=== PATIENT | male | born 1970 | race Caucasian/White ===

== ENCOUNTER 2019-01-19 08:26 | Inpatient (IN) | payer MEDICAID ==
[~2019-01-19] VITALS: Ht 162.6 cm; Wt 68.0 kg
[~2019-01-19 08:26] MED LIST: CLOP75TA33 PO; INSU3INS6 SQ; METO25TA6 PO
[2019-01-19 10:11] LABS: BASOPHILS % 0.6 % (0.0-2.0); EOSINOPHILS % 0.3 % (0.0-5.0); HEMOGLOBIN. 13.6 g/dL (14.0-18.0); LYMPHOCYTES % 19.9 % (20.0-50.0); MEAN CORPUSCULAR HEMOGLOBIN 27.5 pg (28.0-32.0); MEAN PLATELET VOLUME 10.4 fl (7.4-10.4); MONOCYTES % 3.8 % (2.0-8.0); NEUTROPHILS % 75.4 % (40.0-76.0); PLATELET 290 x1000/uL (130-400); RED BLOOD CELL COUNT 4.95 mill/uL (4.7-6.1); RED CELL DISTRIBUTION WIDTH 14.4 % (11.6-14.6)
[2019-01-19 10:16] LABS: INR 1.1; PROTHROMBIN TIME 11.4 sec (9.1-11.1)
[2019-01-19 10:17] LABS: CHLORIDE 109 mEq/L (98-107)
[2019-01-19] MEDS ORDERED: ONDANSETRON HCL 4MG/2ML INJ IV ONE (11:30)
[2019-01-19] MEDS ORDERED: HYDRALAZINE 20MG/ML VIAL IV ONE (11:30)
[2019-01-19] MEDS ORDERED: SODIUM CHLORIDE 0.9% 1,000 ML IV ONE (11:35)
[2019-01-19] MEDS ORDERED: METOCLOPRAMIDE HCL 10MG/2ML VIAL IV ONE (14:00)
[2019-01-19] MEDS ORDERED: PANTOPRAZOLE SODIUM 40 MG/VIAL IV ONE (14:00)
[2019-01-19] MEDS ORDERED: METOCLOPRAMIDE HCL 10MG/2ML VIAL IV SCH (14:45)
[2019-01-19] MEDS ORDERED: PANTOPRAZOLE SODIUM 40 MG/VIAL IV SCH (14:45)
[2019-01-19 16:25] LABS: CLARITY URINE CLEAR (CLEAR); COLOR URINE YELLOW (YELLOW); KETONES URINE NEGATIVE (NEGATIVE); LEUKOCYTE ESTERASE URINE NEGATIVE (NEGATIVE); NITRITE URINE NEGATIVE (NEGATIVE); OCCULT BLOOD URINE NEGATIVE (NEGATIVE); PH URINE 5.5 (4.5-8.0); PROTEIN URINE 4+ (NEGATIVE); SPECIFIC GRAVITY URINE 1.022 (1.005-1.030); UROBILINOGEN URINE 0.2 E.U./dL (0.2-1.0)
[2019-01-19] MEDS ORDERED: DEXT 5%/0.45% NACL 1000ML 1,000 ML IV SCH (19:03)
[2019-01-19] MEDS ORDERED: MAGNESIUM/ALUMINUM HYDROXIDE/SIMETHICONE 30ML UDC PO PRN (19:15)
[2019-01-19] MEDS ORDERED: ACETAMINOPHEN 325MG TABLET PO PRN (19:15)
[2019-01-19] MEDS ORDERED: DOCUSATE SODIUM 100MG CAPSULE PO PRN (19:15)
[2019-01-19] MEDS ORDERED: LORAZEPAM 2MG/ML CPJ IV PRN (19:15)
[2019-01-19] MEDS ORDERED: GUAIFENESIN 200MG/10ML SUGAR FREE UDC PO PRN (19:15)
[2019-01-19] MEDS ORDERED: IPRATROPIUM/ALBUTEROL 0.5-3(2.5)MG/3ML NEB INH PRN (19:15)
[2019-01-19] MEDS ORDERED: DIPHENHYDRAMINE 50MG/ML VIAL IV PRN (19:15)
[2019-01-19] MEDS ORDERED: DEXTROSE 50% WATER 50ML SYRINGE IV PRN (19:15)
[2019-01-19] MEDS ORDERED: METOCLOPRAMIDE HCL 10MG/2ML VIAL IV PRN ×2 (19:30→19:42)
[2019-01-19] MEDS ORDERED: HYDRALAZINE 20MG/ML VIAL IV PRN (19:41)
[2019-01-19] MEDS ORDERED: HYDROCODONE/ACETAMINOPHEN 10/325MG TABLET PO PRN (20:15)
[2019-01-19] MEDS: INSULIN LISPRO 100 UNITS/ML SUBCUT SCH (21:00)
[2019-01-19] MEDS ORDERED: HYDROMORPHONE HCL/PF 2MG/ML CPJ IV PRN (21:00)
[2019-01-19] MEDS ORDERED: NA PHOS,M-B/NA PHOS,DI-BA ENEMA 118ML PR PRN (21:00)
[2019-01-19] MEDS ORDERED: METRONIDAZOLE 500 MG PREMIX 100 ML IV NR (21:15)
[2019-01-19] MEDS ORDERED: LEVOFLOXACIN 500MG PREMIX 100 ML IV NR (21:15)
[2019-01-19] MEDS: BLOOD SUGAR DIAGNOSTIC STRIP TEST SCH (21:56)
[2019-01-19 22:49] LABS: CREATINE KINASE MB FRACTION 1.9 ng/mL (0.5-3.6)
[2019-01-19] MEDS: ONDANSETRON HCL 4MG/2ML INJ IV PRN (22:52)
[2019-01-19] MEDS: SODIUM CHLORIDE 0.9% INJ 3ML FLUSH IVF SCH (22:53)
[2019-01-20] MEDS: CLONIDINE 0.1MG TABLET PO PRN ×2 (00:36→19:43)
[2019-01-20 04:24] LABS: BASOPHILS % 0.5 % (0.0-2.0); EOSINOPHILS % 0.1 % (0.0-5.0); HEMATOCRIT. 33.1 % (42.0-52.0); HEMOGLOBIN. 10.9 g/dL (14.0-18.0); LYMPHOCYTES % 18.7 % (20.0-50.0); MEAN CORPUSCULAR HEMOGLOBIN 28.1 pg (28.0-32.0); MEAN CORPUSCULAR VOLUME 85.1 fL (80.0-94.0); MEAN PLATELET VOLUME 9.8 fl (7.4-10.4); MONOCYTES % 4.8 % (2.0-8.0); NEUTROPHILS % 75.9 % (40.0-76.0); PLATELET 218 x1000/uL (130-400); RED BLOOD CELL COUNT 3.89 mill/uL (4.7-6.1); RED CELL DISTRIBUTION WIDTH 14.5 % (11.6-14.6)
[2019-01-20 04:34] LABS: CHLORIDE 113 mEq/L (98-107)
[2019-01-20 04:45] LABS: CREATINE KINASE 70 IU/L (39-308)
[2019-01-20 04:48] LABS: CREATINE KINASE MB FRACTION 1.7 ng/mL (0.5-3.6)
[2019-01-20] MEDS: HYDRALAZINE 20MG/ML VIAL IV PRN ×2 (05:52→23:21)
[2019-01-20] MEDS ORDERED: METRONIDAZOLE 500 MG PREMIX 100 ML IV SCH (06:00)
[2019-01-20 10:30] VITALS: BP 178/97
[2019-01-20] MEDS: BLOOD SUGAR DIAGNOSTIC STRIP TEST SCH ×3 (12:15→21:24)
[2019-01-20] MEDS: INSULIN LISPRO 100 UNITS/ML SUBCUT SCH ×3 (13:39→21:00)
[2019-01-20] MEDS: PANTOPRAZOLE SODIUM 40 MG/VIAL IV SCH ×2 (13:40→21:53)
[2019-01-20] MEDS: ONDANSETRON HCL 4MG/2ML INJ IV PRN (13:40)
[2019-01-20 14:20] LABS: TOTAL IRON BINDING CAPACITY 142 ug/dL (250-450)
[2019-01-20] MEDS: SODIUM CHLORIDE 0.45% 1,000 ML IV SCH (14:43)
[2019-01-20] MEDS: METRONIDAZOLE 500 MG PREMIX 100 ML IV SCH ×2 (14:43→21:54)
[2019-01-20] MEDS: SODIUM CHLORIDE 0.9% INJ 3ML FLUSH IVF SCH ×2 (14:44→21:53)
[2019-01-20 14:54] LABS: HEMATOCRIT 38.2 % (42.0-52.0); HEMOGLOBIN 12.4 g/dL (14.0-18.0)
[2019-01-20 15:25] LABS: T4 FREE 1.3 ng/dL (0.76-1.46)
[2019-01-20 15:27] LABS: CREATINE KINASE MB FRACTION 2.3 ng/mL (0.5-3.6)
[2019-01-20 16:00] VITALS: BP 178/96
[2019-01-20] MEDS ORDERED: LEVOFLOXACIN 500MG PREMIX 100 ML IV SCH (19:15)
[2019-01-20 20:00] VITALS: BP 187/104
[2019-01-20 22:23] LABS: HEMATOCRIT 34.5 % (42.0-52.0); HEMOGLOBIN 11.3 g/dL (14.0-18.0)
[2019-01-20 22:40] LABS: CREATINE KINASE MB FRACTION 2.4 ng/mL (0.5-3.6)
[2019-01-21] VITALS: BP 187/102
[2019-01-21] MEDS: SODIUM CHLORIDE 0.45% 1,000 ML IV SCH ×2 (01:52→14:40)
[2019-01-21] MEDS: CLONIDINE 0.1MG TABLET PO PRN (03:38)
[2019-01-21 04:00] VITALS: BP 178/98
[2019-01-21] MEDS: SODIUM CHLORIDE 0.9% INJ 3ML FLUSH IVF SCH ×3 (06:09→20:30)
[2019-01-21] MEDS: BLOOD SUGAR DIAGNOSTIC STRIP TEST SCH ×4 (06:33→20:34)
[2019-01-21] MEDS: METRONIDAZOLE 500 MG PREMIX 100 ML IV SCH ×3 (06:33→20:30)
[2019-01-21 06:34] LABS: HEMATOCRIT 35.3 % (42.0-52.0); HEMOGLOBIN 11.6 g/dL (14.0-18.0)
[2019-01-21] MEDS: INSULIN LISPRO 100 UNITS/ML SUBCUT SCH ×4 (06:34→21:01)
[2019-01-21 07:04] LABS: CREATINE KINASE MB FRACTION 2.3 ng/mL (0.5-3.6)
[2019-01-21 08:00] VITALS: BP 178/99
[2019-01-21 08:46] LABS: BASOPHILS % 0.5 % (0.0-2.0); EOSINOPHILS % 0.2 % (0.0-5.0); HEMATOCRIT. 36.6 % (42.0-52.0); HEMOGLOBIN. 11.9 g/dL (14.0-18.0); LYMPHOCYTES % 18.8 % (20.0-50.0); MEAN PLATELET VOLUME 10.3 fl (7.4-10.4); MONOCYTES % 3.7 % (2.0-8.0); NEUTROPHILS % 76.8 % (40.0-76.0); PLATELET 223 x1000/uL (130-400); RED BLOOD CELL COUNT 4.26 mill/uL (4.7-6.1)
[2019-01-21] MEDS: PANTOPRAZOLE SODIUM 40 MG/VIAL IV SCH ×2 (08:55→21:06)
[2019-01-21] MEDS: ONDANSETRON HCL 4MG/2ML INJ IV PRN (08:55)
[2019-01-21] MEDS: HYDRALAZINE 20MG/ML VIAL IV PRN (08:56)
[2019-01-21] MEDS ORDERED: LEVOFLOXACIN 250MG PREMIX 50 ML IV SCH ×2 (11:00→13:00)
[2019-01-21 12:00] VITALS: BP 161/97
[2019-01-21 14:38] LABS: HEMATOCRIT 38.5 % (42.0-52.0); HEMOGLOBIN 12.5 g/dL (14.0-18.0)
[2019-01-21] MEDS ORDERED: SIMETHICONE 40 MG/0.6 ML 30ML ONE (14:59)
[2019-01-21] MEDS ORDERED: SODIUM CHLORIDE 0.9% 10ML VIAL ONE (14:59)
[2019-01-21 16:00] VITALS: BP 150/80
[2019-01-21] MEDS ORDERED: MIDAZOLAM HCL 2 MG/2 ML VIAL IV PRN (16:14)
[2019-01-21] MEDS ORDERED: FENTANYL CITRATE/PF 50MCG/ML 2ML VIAL IV PRN (16:15)
[2019-01-21] MEDS ORDERED: MIDAZOLAM HCL 5 MG/5 ML VIAL ONE (16:19)
[2019-01-21] MEDS ORDERED: FENTANYL CITRATE/PF 50MCG/ML 2ML VIAL ONE (16:19)
[2019-01-21 20:00] VITALS: BP 148/85
[2019-01-21 23:58] LABS: HEMATOCRIT 36.9 % (42.0-52.0); HEMOGLOBIN 11.9 g/dL (14.0-18.0)
[2019-01-22] VITALS: BP 164/92
[2019-01-22] MEDS: CLONIDINE 0.1MG TABLET PO PRN (00:26)
[2019-01-22 04:00] VITALS: BP 155/93
[2019-01-22] MEDS: SODIUM CHLORIDE 0.9% INJ 3ML FLUSH IVF SCH ×2 (06:28→14:00)
[2019-01-22] MEDS: METRONIDAZOLE 500 MG PREMIX 100 ML IV SCH ×2 (06:28→14:00)
[2019-01-22] MEDS: SODIUM CHLORIDE 0.45% 1,000 ML IV SCH (06:31)
[2019-01-22] MEDS: BLOOD SUGAR DIAGNOSTIC STRIP TEST SCH ×2 (06:37→12:16)
[2019-01-22 06:38] LABS: BASOPHILS % 0.6 % (0.0-2.0); EOSINOPHILS % 1.1 % (0.0-5.0); HEMATOCRIT. 35.9 % (42.0-52.0); HEMOGLOBIN. 11.8 g/dL (14.0-18.0); LYMPHOCYTES % 21.5 % (20.0-50.0); MEAN CORPUSCULAR HEMOGLOBIN 27.9 pg (28.0-32.0); MEAN CORPUSCULAR VOLUME 85.1 fL (80.0-94.0); MEAN PLATELET VOLUME 10.5 fl (7.4-10.4); MONOCYTES % 7.2 % (2.0-8.0); NEUTROPHILS % 69.6 % (40.0-76.0); PLATELET 217 x1000/uL (130-400); RED BLOOD CELL COUNT 4.22 mill/uL (4.7-6.1); RED CELL DISTRIBUTION WIDTH 14.3 % (11.6-14.6)
[2019-01-22 08:00] VITALS: BP 165/97
[2019-01-22 08:23] LABS: A/G RATIO 1.2 (0.7-1.7); ALBUMIN 2.6 g/dL (2.9-4.4); ALPHA-1-GLOBULIN 0.2 g/dL (0.0-0.4); ALPHA-2-GLOBULIN 0.7 g/dL (0.4-1.0); BETA GLOBULIN 0.7 g/dL (0.7-1.3); GAMMA GLOBULINS 0.6 g/dL (0.4-1.8); GLOBULIN TOTAL 2.2 g/dL (2.2-3.9); M-SPIKE Not Observed g/dL (Not Observed); TOTAL PROTEIN SERUM 4.8 g/dL (6.0-8.5)
[2019-01-22 12:00] VITALS: BP 159/93
[2019-01-22] MEDS ORDERED: DEXTROSE 50% WATER 50ML SYRINGE IV PRN (12:30)
[2019-01-22] MEDS: INSULIN LISPRO 100 UNITS/ML SUBCUT SCH ×2 (12:59→17:03)
[2019-01-22] MEDS: PANTOPRAZOLE SODIUM 40 MG/VIAL IV SCH (13:21)
[2019-01-22 16:00] VITALS: BP 153/91
[2019-01-22] MEDS ORDERED: BLOOD SUGAR DIAGNOSTIC STRIP TEST SCH (16:45)
[2019-01-22 17:06] LABS: ANTI-NUCLEAR ANTIBODIES DIRECT Negative (Negative)
[2019-01-22] MEDS ORDERED: INSULIN LISPRO 100 UNITS/ML SUBCUT SCH (17:15)
[2019-01-22 17:25] VITALS: BP 153/91
[2019-01-23 05:28] LABS: COMPLEMENT C3 86 mg/dL (82-167)
== END 2019-01-22 19:00 | disposition home or self-care (01) | DRG 469 ==
LOC: ER 08:33 → 5WST 14:36 → EDBEDREQ 14:50 → ENRESERV 01-20 07:07
PROVIDERS: ADMIT Internal Medicine; ATTEND Internal Medicine
PROC: 0DB68ZX Excision of Stomach, Via Natural or Artificial Opening Endoscopic, Diagnostic (ICD-10-PCS; principal; 2019-01-21)
DX: N17.0 Acute kidney failure with tubular necrosis (principal); K22.11 Ulcer of esophagus with bleeding; K25.4 Chronic or unspecified gastric ulcer with hemorrhage; K29.71 Gastritis, unspecified, with bleeding; E46 Unspecified protein-calorie malnutrition; E11.22 Type 2 diabetes mellitus with diabetic chronic kidney disease; K57.31 Diverticulosis of large intestine without perforation or abscess with bleeding; D64.9 Anemia, unspecified; N20.0 Calculus of kidney; N40.0 Benign prostatic hyperplasia without lower urinary tract symptoms; E78.5 Hyperlipidemia, unspecified; E86.9 Volume depletion, unspecified; N18.9 Chronic kidney disease, unspecified; E11.51 Type 2 diabetes mellitus with diabetic peripheral angiopathy without gangrene; E78.00 Pure hypercholesterolemia, unspecified; I12.9 Hypertensive chronic kidney disease with stage 1 through stage 4 chronic kidney disease, or unspecified chronic kidney disease; K44.9 Diaphragmatic hernia without obstruction or gangrene; Z86.73 Personal history of transient ischemic attack (TIA), and cerebral infarction without residual deficits; Z87.11 Personal history of peptic ulcer disease; Z89.429 Acquired absence of other toe(s), unspecified side; Z79.4 Long term (current) use of insulin; Z79.899 Other long term (current) drug therapy; Z89.432 Acquired absence of left foot; Z89.431 Acquired absence of right foot; Z68.25 Body mass index [BMI] 25.0-25.9, adult
CPT/HCPCS: 36415; 71045; 74176; 76770; 80048; 80061; 82550; 82553; 82570; 82728; 82962; 83036; 83540; 83550; 83880; 84155; 84156; 84165; 84439; 84443; 84484; 85014; 85018; 85379; 86038; 86160; 88305; 88312; 88313; 93005; 93306; 96374; 99285; C9113; J0360; J1815; J1956; J2250; J2405; J2765; J3010; J3490